=== PATIENT | female | born 1990 | race Caucasian/White ===

== ENCOUNTER → 2024-07-06 | Outpatient (CLI) | payer OTHER ==
[2024-07-06 14:48] LABS: Basophils # (A) 0.05 X 10*3/uL (0.00-0.10); Basophils % (A) 0.6 %; Eosinophils # (A) 0.52 X 10*3/uL (0.04-0.35); Eosinophils % (A) 6.5 %; HCT 43.5 % (37.2-46.3); HGB 14.2 g/dL (12.0-15.0); Lymphocytes # (A) 1.94 X 10*3/uL (0.90-5.00); Lymphocytes % (A) 24.2 %; MCH 27.8 pg (27.0-32.0); MCHC 32.6 g/dL (32.0-37.0); MCV 85.3 FL (80.0-97.0); Mean Platelet Volume 9.5 FL (9.5-12.2); Monocytes # (A) 0.32 X 10*3/uL (0.20-1.00); NRBC Per 100 WBC 0 X 10*3/uL (0.00-0.01); Neutrophils # (A) 5.17 X 10*3/uL (1.80-7.70); Neutrophils % (A) 64.3 %; Platelet Count 382 X 10*3/uL (140-440); RDW 13.6 % (11.5-14.5); WBC 8.03 X 10*3/uL (4.50-10.00)
[2024-07-06 14:59] LABS: ALT 15 U/L (8-44); AST 19 U/L (13-35); Albumin 4.3 g/dL (3.8-4.9); Albumin/Globulin Ratio 1.43 Ratio (1.60-3.17); Alkaline Phosphatase 90 U/L (41-126); Blood Urea Nitrogen 11.5 mg/dL (9.0-27.0); Calcium 9.8 mg/dL (8.7-10.3); Carbon Dioxide 18.7 mmol/L (21.6-31.8); Chloride 108 mmol/L (96-109); Glucose 99 mg/dL (70-110); Sodium 140 mmol/L (135-145); Total Bilirubin 0.2 mg/dL (0.3-1.2); Total Protein 7.3 g/dL (6.2-8.2)
== END | disposition home or self-care (01) ==
LOC: LABWHC1 11:24
PROVIDERS: ATTEND Internal Medicine Gastroenterology
DX: R10.84 Generalized abdominal pain (principal)
CPT/HCPCS: 36415; 80053; 83516; 85025

== ENCOUNTER 2024-09-24 12:57 | Day surgery (SDC) | payer OTHER ==
[2024-09-23 08:45] VITALS: BMI 41.1
[~2024-09-24 12:57] MED LIST: LACTATED RINGERS 1,000 ML IV SCH
[2024-09-24 13:34] VITALS: RESP 16; TEMP 97.1
[2024-09-24] MEDS: IV FLUID CONTINUATION 1,000 ML IV ONE (13:35)
[2024-09-24] MEDS ORDERED: PROPOFOL 10 MG/ML 20 ML VIAL IV ONE (15:12)
--- NOTE | 2024-09-24 15:24 | P.PCN ---
Date of Procedure: 09/24/24 Procedure(s) Performed: BRIEF HISTORY: Patient is a 33-year-old pleasant white female scheduled for an elective colonoscopy as a part of evaluation of lower abdominal pain, change in bowel habits and intermittent rectal bleeding for the last several months duration. PROCEDURE PERFORMED: Colonoscopy. PREOPERATIVE DIAGNOSIS: Lower abdominal pain, intermittent rectal bleeding and change in bowel habit. IV sedation per Anesthesia. PROCEDURE: After informed consent was obtained, the patient, was brought into the endoscopy unit. IV sedation was administered by Anesthesia under continuous monitoring. Digital rectal examination was normal. Initially the Olympus CF-160 flexible video colonoscope was then inserted in the rectum, gradually advanced into the cecum without any difficulty. Careful examination was performed as the scope was gradually being withdrawn. Ileocecal valve and the appendiceal orifice were visualized and appeared normal. Prep was excellent. Mucosa of the cecum, ascending colon, transverse colon, descending colon, sigmoid colon, and rectum appeared normal. Retroflexion was performed in the rectum and small internal hemorrhoids were seen. The patient tolerated the procedure well. IMPRESSION: Normal-appearing colon from rectum to cecum with no evidence of colitis or c olorectal neoplasia. Small internal hemorrhoids. RECOMMENDATIONS: Findings of this examination were discussed with the patient as well as her family. She was advised to be on high-fiber diet, take fiber supplements on a regular basis and continue with MiraLAX on a daily basis. Recommended repeat screening colonoscopy at age 46..
[2024-09-24 16:07] LABS: Glucose,Whole Blood 75 mg/dL (70-110)
[2024-09-24 16:08] VITALS: BP 129/81; PULSE 75
== END 2024-09-24 16:45 | disposition home or self-care (01) ==
LOC: ORWHC2ENDO 12:57
PROVIDERS: ATTEND Internal Medicine Gastroenterology
DX: K62.5 Hemorrhage of anus and rectum (principal); E78.5 Hyperlipidemia, unspecified; R56.9 Unspecified convulsions; R10.30 Lower abdominal pain, unspecified; Z79.899 Other long term (current) drug therapy
CPT/HCPCS: 81025; 45378; J2704